=== PATIENT | male | born 1945 | race Caucasian/White ===

== ENCOUNTER → 2017-12-19 | Outpatient (CLI) | payer MEDICARE ==
[~2017-12-19] MED LIST: AMARYL4 MG PO; ASPIRIN325 PO; CLONAZEPAM 0.50.5 M1 PO; CRESTOR10 MG PO; FISH OIL 1,001000 M2 PO; FISH OIL/OMEGA 3 PO; LASIX 40 MG TAB40 M2 PO; LISINOPRIL10 MG PO; MAGNESIUM250 M1 PO; METFORMIN HCL500 MG PO; NORCO 5-325 TA1 EACH PO; NORVASC5 MG PO; OMEPRAZOLE40 MG PO; PERCOCET 10-321 EACH PO; POTASSIUM CHLO10 MEQ PO; VITAMIN B122500 MCG PO
--- NOTE | 2017-12-19 13:26 | 2DMMODE ---
[place] [address] 2 D/M-MODE ECHOCARDIOGRAM Name: CLEM CALLEJAS Room: [facility]#: [id number] Admission: 12/19/17 Attend Phys: Beck Dawn, Discharge: Date of : 49 Date of Service: 12/19/17 1326 Report #: [id number] THIS REPORT FOR: //name// APPROVED REPORT Study performed: 12/19/2017 09:43:30 EXAM: Comprehensive 2D, Doppler, and color-flow Echocardiogram Patient Location: Out-Patient Status: routine BSA: 2.41 HR: 84 bpm BP: 190/82 mmHg Other Information Study Quality: Good Indications Carotid disease 2D Dimensions IVSd: 11.79 (7-11mm) LVOT Diam: 20.68 (18-24mm) LVDd: 45.91 mm PWd: 10.77 (7-11mm) Ascending Ao: 32.47 (22-36mm) LVDs: 29.68 (25-40mm) Aortic Root: 30.06 mm Volumes Left Atrial Volume (Systole) LA ESV Index: 15.10 mL/m2 Aortic Valve AoV Peak Bonifacio.: 1.32 m/s AO Peak Gr.: 6.97 mmHg LVOT Max P.76 mmHg AO Mean Gr.: 4.03 mmHg LVOT Mean P.43 mmHg LVOT Max V: 0.83 m/s AO V2 VTI: 25.74 cm LVOT Mean V: 0.55 m/s CELINE (VTI): 2.37 cm2 LVOT V1 VTI: 18.14 cm Mitral Valve E/A Ratio: 0.69 MV Decel. Time: 171.97 ms MV E Max Bonifacio.: 0.64 m/s MV PHT: 49.87 [place] [address] 2 D/M-MODE ECHOCARDIOGRAM Name: CLEM CALLEJAS Room: [facility]#: [id number] Admission: 12/19/17 Attend Phys: Beck Dawn, Discharge: Date of : 49 Date of Service: 12/19/17 1326 Report #: [id number] MVA (PHT): 4.41 cm2 TDI E/Lateral E': 5.33 E/Medial E': 9.14 Medial E' Bonifacio.: 0.07 m/s Lateral E' Bonifacio.: 0.12 m/s Pulmonary Valve PV Peak Bonifacio.: 1.03 m/s PV Peak Gr.: 4.27 mmHg Tricuspid Valve RAP Estimate: 5.00 mmHg TR Peak Gr.: 32.72 mmHg RVSP: 37.72 mmHg PA Pressure: 37.72 mmHg Left Ventricle The left ventricle is normal size. There is normal LV segmental wall motion. There is normal left ventricular wall thickness. Left ventricular systolic function is normal. The left ventricular ejection fraction is within the normal range. LVEF is 55-60%. Grade I - abnormal relaxation pattern. Right Ventricle The right ventricle is normal size. The right ventricular systolic function is normal. Atria The left atrium size is normal. The right atrium size is normal. Aortic Valve The aortic valve is normal in structure. No aortic regurgitation is present. There is no aortic valvular stenosis. Mitral Valve The mitral valve is normal in structure. There is no mitral valve regurgitation noted. No evidence of mitral valve stenosis. Tricuspid Valve The tricuspid valve is normal in structure. Mild tricuspid regurgitation.PAP 32mmHg Pulmonic Valve The pulmonary valve is normal in structure. Mild [place] [address] 2 D/M-MODE ECHOCARDIOGRAM Name: CLEM CALLEJAS Room: [facility]#: [id number] Admission: 12/19/17 Attend Phys: Beck Dawn, Discharge: Date of : 49 Date of Service: 12/19/17 1326 Report #: [id number] Great Vessels The aortic root is normal in size. IVC is normal in size and collapses >50% with inspiration. Pericardium There is no pericardial effusion. <Conclusion> LVEF is 55-60%. There is normal LV segmental wall motion. Grade I - abnormal relaxation pattern. There is no aortic valvular stenosis. No aortic regurgitation is present. There is no mitral valve regurgitation noted. No evidence of mitral valve stenosis. Mild pulmonic regurgitation. Mild tricuspid regurgitation.PAP 32mmHg <ELECTRONICALLY SIGNED> By: Rohith Boucher MD, FACC 12/19/17 132 25 25 Rohith Boucher MD, FACC /INF
== END ==
LOC: M.CRD 11-30 09:45
DX: I25.119 Atherosclerotic heart disease of native coronary artery with unspecified angina pectoris (principal); R42 Dizziness and giddiness; H34.232 Retinal artery branch occlusion, left eye

== ENCOUNTER → 2017-12-28 | Outpatient (CLI) | payer MEDICARE ==
[~2017-12-28] MED LIST changes: -FISH OIL 1,001000 M2 PO; -NORCO 5-325 TA1 EACH PO
== END ==
LOC: M.CT 08:40
DX: I65.23 Occlusion and stenosis of bilateral carotid arteries (principal)

== ENCOUNTER 2018-02-14 10:10 | Inpatient (IN) | payer MEDICARE ==
[~2018-02-14] VITALS: Ht 180.3 cm; Wt 121.6 kg
[2018-02-14] VITALS (21 sets, daily range): BP systolic 94–156; BP diastolic 38–72
[2018-02-14 10:58] LABS: HEMATOCRIT 32.7 % (42.0-52.0); MCH 27.1 pg (26.0-34.0); MCHC 33.5 g/dL (28.0-37.0); MCV 80.8 fL (80.0-100.0); MPV 7.3 fl. (7.2-11.1); RBC 4.04 mil/uL (4.50-6.00); RDW-CV 15.8 % (10.5-14.5); WBC 4.4 thou/uL (4.0-11.0)
[2018-02-14 11:05] LABS: CREATININE 1.2 mg/dL (0.6-1.3); POTASSIUM 4.2 mmol/L (3.5-5.1)
[2018-02-14 11:06] LABS: INR 1.1; PROTIME 11.6 Seconds (9.20-11.50)
--- NOTE | 2018-02-14 11:42 | EKG ---
[place] [address] ELECTROCARDIOGRAM REPORT Name: CALLEJASCLEM Room: [place] [address] ADM IN M.R.#: [id number] Admission: 02/14/18 Attend Phys: Dimas Wilcox DO Discharge: Date of : 49 Report #: [id number] THIS REPORT FOR: //name// [facility] Test Date: 2018-02-14 Test Time: 11:01:16 Pat Name: CLEM CALLEJAS Department: Room: [place] [address] Gender: M Teacher: : 1945 Requested By: Dimas Wilcox Order Number: [id number] Pam MD: Beck Chery Measurements Intervals [place] Rate: 61 P: 62 [place]: 194 QRS: 41 QRSD: 115 T: 15 QT: 442 QTc: 446 Interpretive Statements Sinus arrhythmia Nonspecific intraventricular conduction delay Baseline wander in lead(s) I,aVR No previous ECG available for comparison Electronically Signed On 02-14-2018 11:42:36 SPECIAL TESTER by Beck Chery [email or web address] <ELECTRONICALLY SIGNED> By: Beck Chery MD, [facility] 02/14/18 1142 1101 00 Beck Chery MD, FACC /EPI
--- NOTE | 2018-02-14 17:23 | NUR ---
RECEIVED PT FROM PACU. PT A/O X'S 4. BP 121/51. 98% ON 2L NC. AFEBRILE. PT C/O OF LEFT NECK PAIN AND LEFT EYE PAIN. PT REPORTS FEELS LIKE "SOMEONE STICKING A THUMB IN HIS NECK ALL THE WAY UP THROUGH THE EYE". VASCULAR NOTIFIED. AWAITING ORDERS. PT C/O OF HEADACHE. PT TOLERATING CLEAR LIQUIDS. DR NOTIFIED OF PT'S PAIN. DILAUDID ORDERED. MADE AWARE PT DESATTED IN PACU WITH 25MCG OF FENTANYL.
[2018-02-15] VITALS (14 sets, daily range): BP systolic 109–151; BP diastolic 47–63
--- NOTE | 2018-02-15 05:51 | NUR ---
PT AAOX4 RESP REG AND UNLABORED SKIN W/D NO ACUTE DISTRESS NOTED. AT BEGINNING OF SHIFT PT C/O PAIN BEHIND LEF EYE. THIS IS NOT A NEW PAIN AND DR AWARE. MEDICATIONS GIVEN ORDERED. CARDENE GTT STARTED AT 1915 ORDERED. SEE CHART FOR TITRATION CHARTING. PT ATTEMPTED TO VOID BY SITTING ON BEDSIDE AT 2115, BP DROPPED TO 86/32 ASSISTED BACK TO BED AND BP INCREASED TO 94/38. CARDENE GTT DCD AT THIS TIME. BP CREPT UP AND CANDY GTT RESTARTED AT 5MCQ AT 0015. PT VOIDED WITHOUT DIFFICULTY. DENIES N/V. PT SLEPT OFF AND ON DURIGN SHIFT. SUPERVISOR SALVAGE INTACT WITH ALARMS SET. VSS AND NO ACUTE CHANGES DURING SHIFT. WILL CONTINUE TO MONITOR.
--- NOTE | 2018-02-15 18:26 | NUR ---
ASSUMMED PT CARE, REPORT FROM JOSEPH ELLIOTT
--- NOTE | 2018-02-15 18:44 | NUR ---
PT UP INDEPENDENTLY IN ROOM, C/O PAIN IN L NECK 09/10 BUT REFUSES PAIN MED UNTIL BED TIME. ALERT AND ORIENTED X4, PLEASANT. INCISION TO L NECK INTACT WITH GLUE, NO DRAINAGE OR REDNESS NOTED. PT ABLE TO MAKE NEEDS KNOWN, CALL LIGHT IN REACH
--- NOTE | 2018-02-15 20:00 | NUR ---
RECEIVED REPORT AND ASSUMED CARE OF PT, ASSESSMENT COMPLETED. LT NECK INCISION INTACT WITH SURGICAL GLUE. NO REDNESS, EDEMA OR DRAINAGE. PT C/O PAIN TO AREA 8/10 ON PAIN SCALE. REQUESTING PAIN MED AT HS AND NOT AT THIS TIME. TELEMETRY ON SHOWING SB TO LOW SR. WILL CONT TO MONITOR AND ASSIST NEEDED.
[2018-02-16] VITALS: BP 139/53
[2018-02-16 04:00] VITALS: BP 140/54
--- NOTE | 2018-02-16 07:08 | NUR ---
SLEPT WELL. PO PAIN MEDS GIVEN FOR C/O LT NECK PAIN. STATES FEELS MUCH BETTER THIS AM. NO CHANGES IN ASSESSMENT. TELEMETRY SHOWING SR. ACHIEVED HS GOALS OF REST AND SAFETY. HOURLY ROUNDING OBSERVED.
--- NOTE | 2018-02-16 07:10 | NUR ---
RECEIVED REPORT. ASSUMED CARE OF PT AT 0730. VSS. CARDIAC MONTIORING IN PLACE SR WITH BBB. AM ASSESSMENT AND VITALS COMPLETED CHARTED. PT ALERT AND ORIETNED. PT ON RA. IV SALINE LOCKED. PT DENIES ANY PAIN THIS AM. SURGICAL WOUND TO LEFT NECK TUMBLING AND ROLLING SUPERVISOR C/D/I. PT REPORTS READY FOR POSSIBLE DISCHARGE. PT INFORMED OF PLAN OF CARE. CALL LIGHT IS WITHIN REACH. WILL CONTINUE TO MONTIOR FOR DURATION OF SHFIT.
[2018-02-16 08:03] VITALS: BP 123/53
--- NOTE | 2018-02-16 11:13 | NUR ---
MET WITH PT TO DISCUSS HOME SITUATION/DC PLANNING PT LIVES WITH . IS NORMALLY INDEPENDENT AND ACTIVE. USES NO EQUIPMENT. PT PLANS TO RETURN HOME WITH . DENIES ANY DC NEEDS. WANTS IVS OUT, NURSE AWARE
[2018-02-16] MEDS ORDERED: NORCO 5-325 TA1 EACH PO ×2 (11:21→11:59)
[2018-02-16 11:26] VITALS: BP 123/53
[2018-02-16] MEDS ORDERED: ASPIRIN325 PO (11:59)
[2018-02-16] MEDS ORDERED: FISH OIL 1,001000 M2 PO (11:59)
--- NOTE | 2018-02-16 12:10 | NUR ---
DISCHARGE ORDERS RECIEVED AND PREPARED. IV AND CARDIAC MONTIORING DISCONTINUED. PT EDUCATED ON DISCAHRGE INSTRCUTIONS. PT COMMUNICATES UNDERSTANDING. PT GIVEN COPY OF D/C PAPERWORK AND NEW SCRIPT. PT'S PERSONAL BELONGINGS GATHERED AND SENT HOME WITH PT. PT ESCORTED OFF UNIT WITH NURSING STAFF. PT LEFT IN PRIVATE VEHCILE.
--- NOTE | 2018-02-16 13:23 | OP ---
[address] [address] OPERATIVE REPORT Name: CALLEJASCLEM Room: [address] IN M.R.#: [id number] Admission: 02/14/18 Attend Phys: Dimas Wilcox DO Discharge: 02/16/18 Date of : 49 Report #: [id number] THIS REPORT FOR: //name// CC: Dimas Almanzahari DATE OF SERVICE: 02/14/2018 PREOPERATIVE DIAGNOSIS: Asymptomatic high-grade left carotid artery stenosis. POSTOPERATIVE DIAGNOSIS: Asymptomatic high-grade left carotid artery stenosis. OPERATION: Left carotid endarterectomy with bovine pericardial patch angioplasty. SURGEON: Dimas Wilcox DO. STULL HEWER: MONA German. ANESTHESIA: General. ESTIMATED BLOOD LOSS: 150 mL. FLUIDS: 800 mL crystalloid. URINE OUTPUT: None. SPECIMENS: Left carotid plaque. IMPLANTS: A 0.8 x 8 bovine pericardial patch to left carotid artery. FINDINGS: He had a heavily calcified 90% stenosis of the left internal carotid artery, difficult exposure, is a short fat neck, but this endarterectomized well. Completion intraoperative duplex demonstrated no intraluminal defects and good flow through the external and continuous diastolic flow through the internal carotid artery. CLINICAL HISTORY: The patient is a 72-year-old man who was found to have asymptomatic high-grade left carotid artery stenosis, presented for left carotid endarterectomy for stroke risk reduction. DETAILS OF PROCEDURE: After informed consent was obtained, the patient was taken to the operating room and placed in the OR bed in supine position, administered general anesthesia by the anesthesia team. Left neck was prepped and draped in usual sterile fashion. Full timeout was performed identifying correct patient and procedure. Next, a longitudinal incision made along the [place] [id number] OPERATIVE REPORT Name: CLEM CALLEJAS Room: [address] IN [facility].#: [id number] Admission: 02/14/18 Attend Phys: Dimas Wilcox DO Discharge: 02/16/18 Date of : 49 Report #: [id number] anterior border of sternocleidomastoid. Dissection was carried down through skin and subcutaneous tissue both sharply and electrocautery. The facial vein was identified, was ligated between 2-0 silk ties and divided. The proximal common carotid artery was controlled circumferentially with umbilical tape and Rumel tourniquet. I then dissected out the external carotid and superior thyroid arteries, controlled with Silastic vessel loops in Bower fashion. I then dissected out the distal internal carotid artery, administered 10,000 units of intravenous heparin. This allowed to circulate for 3 minutes and then sequentially clamped the internal followed by the external and common carotid arteries. I then made a longitudinal arteriotomy, extended with Bower scissors on the normal common and internal carotid arteries. I then placed a 12-[place] shunt in standard fashion. Doppler interrogation confirmed flow through shunt. I then performed a standard endarterectomy and eversion endarterectomy of the external carotid artery. I freed the artery of all intimal debris. I then flushed it with heparinized saline. I then performed a patch angioplasty with bovine pericardial patch with running 6-0 Prolene suture. Prior to completion of the suture line, the shunt was removed, and the artery was allowed to fore and backbleed. I then flushed with heparinized saline, completed the patch, restored flow first up the external carotid artery and after several heartbeats to the internal carotid artery. I then performed completion intraoperative duplex. I did not see any intraluminal defects and good flow through the external and continuous diastolic flow through the internal carotid artery. I then partially reversed the heparin with 50 mg protamine. Once hemostasis was ensured, the wound was irrigated with antibiotic solution and was then closed in layers with 2-0 and 3-0 Vicryl, 4-0 Monocryl in the skin. Local anesthetic was infiltrated. Dermabond was applied. All sponge, sharp and instrument counts reported correct x 2. He tolerated the procedure well and was transferred to recovery room in stable condition. He was extubated in the room, neurologically intact, moving upper and lower extremities appropriately and transferred to recovery room in stable condition. <ELECTRONICALLY SIGNED> By: Dimas Wilcox DO 02/16/18 1323 1453 1523Alucy Wilcox DO /nt
--- NOTE | 2018-02-26 10:05 | PATH ---
[address] [address] PATHOLOGY RPT PROCEDURE Name: CLEM CALLEJAS Room: [address] IN ..#: [id number] Admission: 02/14/18 Date of : 49 Discharge: 02/16/18 Report #: [id number] Path Case #: [id number] [facility] Accession Number: [id number] . 01 Material submitted: . LEFT CAROTID PLAQUE . 01 Clinical history: . Bilateral carotid artery stenosis . 02 Diagnosis: Left carotid plaque: - Fibrointimal atherosclerotic plaque with prominent calcification. (JOSE:pit 02/23/2018) QTP/02/23/2018 . 02 Electronically signed: . Ba Carter MD, Pathologist NPI- [id number] . 01 Gross description: . Received in formalin labeled "Clem Callejas, left carotid plaque," is a roughly tubular segment of yellow-foster, rubbery tissue measuring 3.2 x 1.3 x 1.2 cm in greatest dimensions. A deposit of granular, foster-brown material is present on the specimen interior that measures 1.3 x 0.8 x 0.7 cm. Sectioning reveals partially calcified cut surfaces. Lodging Manager tissue is submitted in cassette A1, following decalcification. (DAC; 02/21/2018) XDC/XDC . 02 Pathologist provided ICD-10: I65.22 . 02 CPT . 276076, 342787 Specimen Comment: A courtesy copy of this report has been sent to Specimen Comment: [phone], . Specimen Comment: Report sent to / DR EPPERSON Performed at: [address], [place], [place] [id number] MD Michael Beard MD Phone: [phone] Performed at: 02 [facility] [address], [place], [place] [id number] MD Ba Carter MD Phone: [phone]
== END 2018-02-16 12:15 | disposition home or self-care (01) | DRG 38 ==
LOC: M.PRE 10:10 → M.ICU 10:25 → M.2W 10:25 → M.TBA 10:25 → M.PRE 14:16 → M.ICU 15:58 → M.2W 02-15 18:38
PROVIDERS: ADMIT Surgery
DX: I65.22 Occlusion and stenosis of left carotid artery (principal); J98.11 Atelectasis; E11.9 Type 2 diabetes mellitus without complications; I10 Essential (primary) hypertension; E78.5 Hyperlipidemia, unspecified; Z88.0 Allergy status to penicillin; Z91.02 Food additives allergy status; Z90.49 Acquired absence of other specified parts of digestive tract; Z98.49 Cataract extraction status, unspecified eye

== ENCOUNTER → 2019-03-29 | Outpatient (CLI) | payer MEDICARE ==
[~2019-03-29] MED LIST changes: +FISH OIL 1,001000 M2 PO; +NORCO 5-325 TA1 EACH PO
[2019-03-29 07:44] LABS: CREATININE 1.4 mg/dL (0.6-1.3)
== END ==
LOC: M.LAB 06:50 → M.CT 08:00
PROVIDERS: Nurse Practitioner
DX: K76.0 Fatty (change of) liver, not elsewhere classified (principal); I71.4 Abdominal aortic aneurysm, without rupture; I77.811 Abdominal aortic ectasia; I70.0 Atherosclerosis of aorta; R16.2 Hepatomegaly with splenomegaly, not elsewhere classified; M47.819 Spondylosis without myelopathy or radiculopathy, site unspecified

== ENCOUNTER → 2019-06-06 | Outpatient (CLI) | payer MEDICARE ==
[2019-06-06 06:48] LABS: POTASSIUM 4.2 mmol/L (3.5-5.1)
== END ==
LOC: M.LAB 04:44
PROVIDERS: Anesthesiology
DX: E87.6 Hypokalemia (principal); E11.9 Type 2 diabetes mellitus without complications

== ENCOUNTER → 2019-09-26 | Outpatient (CLI) | payer MEDICARE | LOC: M.RAD 11:09 | PROVIDERS: ATTEND Internal Medicine | DX: M47.892 Other spondylosis, cervical region (principal); M19.90 Unspecified osteoarthritis, unspecified site ==

== ENCOUNTER → 2020-05-27 | Outpatient (CLI) | payer OTHER | LOC: M.RAD 13:10 | PROVIDERS: ATTEND Internal Medicine | DX: M50.30 Other cervical disc degeneration, unspecified cervical region (principal); M47.812 Spondylosis without myelopathy or radiculopathy, cervical region; I77.89 Other specified disorders of arteries and arterioles; M53.82 Other specified dorsopathies, cervical region; Z88.0 Allergy status to penicillin; Z88.8 Allergy status to other drugs, medicaments and biological substances ==

== ENCOUNTER → 2020-08-20 | Outpatient (CLI) | payer OTHER | LOC: M.ULTRA 09:05 | PROVIDERS: ATTEND Internal Medicine | DX: N28.9 Disorder of kidney and ureter, unspecified (principal); Z88.1 Allergy status to other antibiotic agents; Z88.2 Allergy status to sulfonamides; Z88.8 Allergy status to other drugs, medicaments and biological substances ==

== ENCOUNTER → 2020-10-12 | Outpatient (CLI) | payer OTHER | LOC: M.CT 10-07 12:22 → M.MRI 08:13 → M.CT 09:30 | PROVIDERS: ATTEND Internal Medicine | DX: I67.82 Cerebral ischemia (principal); R55 Syncope and collapse; R10.12 Left upper quadrant pain; R16.2 Hepatomegaly with splenomegaly, not elsewhere classified ==

== ENCOUNTER → 2021-03-10 | Outpatient (CLI) | payer OTHER ==
[~2021-03-10] VITALS: Ht 177.8 cm; Wt 116.8 kg
[~2021-03-10] MED LIST changes: +CARVEDILOL12.5 MG PO; +FENOFIBRATE48 MG PO; +KLOR-CON M2020 MEQ PO
[2021-03-10 08:33] VITALS: BP 157/60
[2021-03-10 08:54] LABS: HEMATOCRIT 33.3 % (42.0-52.0); HEMOGLOBIN 11.5 gm/dL (14.0-18.0); MCH 28.2 pg (26.0-34.0); MCHC 34.4 g/dL (28.0-37.0); MCV 81.8 fL (80.0-100.0); MPV 7.7 fl. (7.2-11.1); RBC 4.07 mil/uL (4.50-6.00); RDW-CV 14.9 % (10.5-14.5); WBC 4.5 thou/uL (4.0-11.0)
[2021-03-10 09:05] LABS: CALCIUM 9.2 mg/dL (8.5-10.1); CREATININE 1.2 mg/dL (0.6-1.3); POTASSIUM 4.8 mmol/L (3.5-5.1)
[2021-03-10 09:17] LABS: APTT 25.8 Seconds (25.0-31.3); INR 1.1; PROTIME 11.2 Seconds (9.20-11.50)
[2021-03-10 10:00] VITALS: BP 150/70
[2021-03-10 10:05] VITALS: BP 140/69
[2021-03-10 10:10] VITALS: BP 140/69
[2021-03-10 10:30] VITALS: BP 150/88
[2021-03-10 11:10] VITALS: BP 174/50
--- NOTE | 2021-03-19 14:07 | PATH ---
[address] [address] PATHOLOGY RPT PROCEDURE Name: CALLEJASCLEM BENOIT Room: [facility] Gerri#: [id number] Admission: 03/10/21 Date of : 49 Discharge: Report #: [id number] Path Case #: [id number] [facility] Accession Number: [id number] . 01 Material submitted: . liver - LIVER MASS . 01 Clinical history: . LIVER MASS 3.4 X 3.3 X 2.4 CM . 02 Diagnosis: Liver, needle biopsy mass: - HEPATOCELLULAR CARCINOMA, MODERATE TO WELL DIFFERENTIATED. - Please see comment. (ROSE MARY:michael; 03/19/2021) S 03/19/2021 1337 Local . 02 Comment: Evaluation of the liver biopsy shows a proliferation of atypical hepatocytes forming trabeculae, cords and plates in excess of three cells in thickness. The reticulin stain in these areas shows dissipation and focal absence. There are areas suggestive of vascular invasion focally. . The case is seen in co-review by Dr. Ba Carter, who concurs with the above diagnosis on 03/17/2021. . The diagnosis is conveyed to Dr. Tree Mantilla on 03/19/2021. (MLK:michael; 03/19/2021) . 02 Electronically signed: . Franck White MD, Pathologist NPI- [id number] . 01 Gross description: . The specimen is received in formalin, labeled "Clem Callejas, liver biopsy". Received are 4 needle cores of pale foster tissue ranging in length from 1.3 to 1.7 cm by 0.1 cm in diameter. The specimen is submitted entirely in A1-A3. ([facility]; 03/10/2021) NRI/NRI 03/10/2021 1811 Local . 02 Microscopic: . Histochemical stain results (properly controlled) . - Reticulin (A1, A2, A3) - Focal dissipation and absence of reticulin framework pattern . (MLK:michael; 03/19/2021) [place] [address] PATHOLOGY RPT PROCEDURE Name: CLEM CALLEJAS Room: [facility] Shanti.R.#: [id number] Admission: 03/10/21 Date of : 49 Discharge: Report #: [id number] Path Case #: [id number] . 02 Pathologist provided ICD-10: C22.0 . 02 CPT . 241514, 164334, 014178, 671089 Specimen Comment: A courtesy copy of this report has been sent to [phone] Specimen Comment: [phone] Specimen Comment: Report sent to / DR NEAL Performed at: 01 [facility] [address] [place] [id number] MD Romeo Sims MD Phone: [phone] Performed at: 02 [facility] [address] [id number] MD Miguel A Smith MD Phone: [phone]
== END | disposition home or self-care (01) ==
LOC: M.LAB 03-01 07:30 → M.ULTRA 03-01 08:30 → M.LAB 07:13
PROVIDERS: Radiology Diagnostic Radiology; ATTEND Nurse Practitioner Family
DX: C22.0 Liver cell carcinoma (principal); I10 Essential (primary) hypertension; E11.9 Type 2 diabetes mellitus without complications; E78.5 Hyperlipidemia, unspecified; K21.9 Gastro-esophageal reflux disease without esophagitis; Z98.890 Other specified postprocedural states; Z79.899 Other long term (current) drug therapy; Z88.8 Allergy status to other drugs, medicaments and biological substances